=== PATIENT | male | born 1980 | race Hispanic/Latino ===

== ENCOUNTER 2017-03-05 20:49 | Emergency (ER) | payer BC ==
[2017-03-05 22:09] VITALS: BMI 29.7
[2017-03-05 22:12] VITALS: BP 135/88; PULSE 89; RESP 18; TEMP 98.1; O2SAT 96
--- NOTE | 2017-03-05 22:41 | ED PDOC ---
Arrival/HPI <Italo Love - Last Filed: 03/05/17 23:52> - General Historian: Patient - History of Present Illness Time/Duration: Other (4 days) Symptom Onset: Sudden Symptom Course: Worsening Quality: Aching Context: Home <Delvin Ramirez - Last Filed: 03/07/17 12:42> - General Chief Complaint: Lower Extremity Problem/Injury Time Seen by Provider: 03/05/17 22:37 - History of Present Illness Narrative History of Present Illness (Text): 03/05/17 22:38 This 36 yo male presents to this ED c/o right ankle pain x 4 days. Patient stated he twisted his ankle, but he said "it was not a big deal". Pain has been progressively worsen. Denies other complains. (Delvin Ramirez) Past Medical History - Provider Review Nursing Documentation Reviewed: Yes - Past History Past History: No Previous - Infectious Disease Hx of Infectious Diseases: None - Tetanus Immunization Tetanus Immunization: Unknown - Cardiac Hx Hyperlipemia: Yes - Psychiatric Hx Depression: No Hx Emotional Abuse: No Hx Physical Abuse: No Hx Substance Use: No - Past Surgical History Past Surgical History: No Previous - Anesthesia Hx Anesthesia: No - Suicidal Assessment Feels Threatened In Home Enviroment: No <Delvin Ramirez - Last Filed: 03/07/17 12:42> Family/Social History - Physician Review Nursing Documentation Reviewed: Yes Family/Social History: No Known Family HX Smoking Status: Never Smoked Hx Alcohol Use: Yes Frequency of alcohol use: Socially Hx Substance Use: No Hx Substance Use Treatment: No <Delvin Ramirez - Last Filed: 03/07/17 12:42> Allergies/Home Meds <Italo Love - Last Filed: 03/05/17 23:52> <Delvin Ramirez - Last Filed: 03/07/17 12:42> Allergies/Adverse Reactions: Allergies No Known Allergies Allergy (Verified 10/29/13 14:13) Review of Systems - Review of Systems Constitutional: Normal. absent: Fatigue, Weight Change, Fevers Eyes: Normal ENT: Normal Respiratory: Normal Cardiovascular: Normal Gastrointestinal: Normal Genitourinary Male: Normal Musculoskeletal: Other ((+) righ ankle pain, and swelling) Skin: Normal Neurological: Normal Endocrine: Normal Hemo/Lymphatic: Normal Psychiatric: Normal <Delvin Ramirez - Last Filed: 03/07/17 12:42> Physical Exam Temperature: Afebrile Blood Pressure: Normal Pulse: Regular Respiratory Rate: Normal Appearance: Positive for: Well-Appearing, Non-Toxic, Comfortable Pain Distress: None Mental Status: Positive for: Alert and Oriented X 3 - Systems Exam Head: Present: Atraumatic, Normocephalic Pupils: Present: PERRL Extroacular Muscles: Present: EOMI Conjunctiva: Present: Normal Mouth: Present: Moist Mucous Membranes Neck: Present: Normal Range of Motion Back: Present: Normal Inspection Upper Extremity: Present: Normal Inspection, Normal ROM, NORMAL PULSES, Neurovascularly Intact, Capillary Refill < 2s. No: Cyanosis, Edema Lower Extremity: Present: NORMAL PULSES, Tenderness (Mild tenderness right lateral malleoulus with mild swelling. No erythema, abrasion, or ecchymosis. Salas test was negative), Temperature Abnormalties, Capillary Refill < 2 s, Other (No tenderness over proximal fibula on palpation). No: Edema, CALF TENDERNESS, Cyanosis, Normal ROM (decreased due to pain), Meredith's Sign Neurological: Present: GCS=15, CN II-XII Intact, Speech Normal, Motor Func Grossly Intact, Normal Sensory Function, Normal Cerebellar Funct, Gait Normal, Memory Normal Skin: Present: Warm, Dry, Normal Color. No: Rashes Psychiatric: Present: Alert, Oriented x 3 <JamesIvysasha Mills - Last Filed: 03/07/17 12:42> Vital Signs Temp Pulse Resp BP Pulse Ox 03/05/17 22:12 98.1 F 89 18 135/88 96 Medical Decision Making <Italo Love - Last Filed: 03/05/17 23:52> Re-evaluation Time: 23:14 Reassessment Condition: Re-examined, Improved <Delvin Ramirez - Last Filed: 03/07/17 12:42> ED Course and Treatment: 03/05/17 22:39 Patient refused pain medication since he took Advil prior coming to ED 03/05/17 23:14 Re-evaluation. Patient feels better. Discussed results and plan with patient who expresses understanding. All questions answered and there is agreement with the plan to discharge home with instructions. Patient stable for discharge. Return if symptoms persist or worsen. (Delvin Ramirez) - RAD Interpretation Narrative RAD Interpretations (Text): 03/05/17 23:15 Ankle x-rays: Soft tissue swelling. No Fx (Delvin Ramirez) Radiology Orders: 03/05/17 22:37 ANKLE RIGHT 3 VIEWS ROUTINE [RAD] Stat - PA / [employer] DES[employer]INE[employer] / Resident Statement / has reviewed & agrees with the documentation as recorded. / has examined the patient and agrees with the treatment plan. <Italo Love - Last Filed: 03/05/17 23:52> Disposition/Present on Arrival <Italo Love - Last Filed: 03/05/17 23:52> - Present on Arrival Any Indicators Present on Arrival: No History of DVT/PE: No History of Uncontrolled Diabetes: No Urinary Catheter: No History of Decub. Ulcer: No History Surgical Site Infection Following: None - Disposition Have Diagnosis and Disposition been Completed?: Yes Disposition Time: 23:16 Patient Plan: Discharge <Delvin Ramirez - Last Filed: 03/07/17 12:42> - Disposition Diagnosis: Ankle sprain Disposition: HOME/ ROUTINE Condition: GOOD Discharge Instructions (ExitCare): Ankle Sprain (ED) Additional Instructions: Call private doctor for follow up visit in 1-2 days. Keep ankle elevated, ice, rest. Remove home ankle brace at bedtime. Call shaft tender if pain persist. Prescriptions: Naproxen 500 mg PO BID PRN #14 tab PRN Reason: Pain, Severe (8-10) Referrals: Shankar Quinn MD [Primary Care Provider] - Follow up with primary Veto Griffith DPM [Staff Provider] - Follow up with primary Forms: [employer] Discharge (Hungarian), WORK NOTE
--- NOTE | 2017-03-06 07:30 | RAD ---
PROCEDURE: Right Ankle Radiographs. HISTORY: pain COMPARISON: None FINDINGS: BONES: Normal. No fracture. JOINTS: Normal. No osteoarthritis. Ankle mortise maintained. Talar dome intact SOFT TISSUES: Soft tissue swelling. OTHER FINDINGS: None. IMPRESSION: No evidence of acute fracture or dislocation.
== END 2017-03-05 23:40 | disposition home or self-care (01) ==
LOC: ED 20:49
DX: S93.401A Sprain of unspecified ligament of right ankle, initial encounter (principal); X50.0XXA Overexertion from strenuous movement or load, initial encounter; Y92.89 Other specified places as the place of occurrence of the external cause